=== PATIENT | male | born 2000 | race African-American/Black ===

== ENCOUNTER 2020-04-03 17:49 | Emergency (ER) | payer OTHER ==
[~2020-04-03] VITALS: Ht 172.7 cm; Wt 97.1 kg
[2020-04-03 18:57] VITALS: BP 140/70
== END 2020-04-03 22:28 | disposition home or self-care (01) ==
LOC: ER 17:49
DX: S93.402A Sprain of unspecified ligament of left ankle, initial encounter (principal); X50.9XXA Other and unspecified overexertion or strenuous movements or postures, initial encounter; Y93.89 Activity, other specified; Y92.89 Other specified places as the place of occurrence of the external cause; Y99.8 Other external cause status
CPT/HCPCS: 73610; 73630

== ENCOUNTER 2024-04-13 22:20 | Emergency (ER) | payer MEDICAID, OTHER ==
[~2024-04-13] VITALS: Ht 172.7 cm; Wt 97.0 kg
[2024-04-13 22:34] VITALS: BP 149/75; PULSE 85; RESP 14; O2SAT 97
[2024-04-14 02:12] LABS: Urine Bacteria None Seen /hpf (None Seen)
[2024-04-14 02:56] LABS: Urine Blood 1+ /uL (Negative); Urine Clarity Turbid (Clear); Urine Color Yellow (Yellow); Urine Mucus FEW (None Seen); Urine Protein, UAD 1+ (Negative); Urine Specific Gravity 1.034 (1.001-1.035); Urine Urobilinogen Normal (Negative); Urine WBC 813 /hpf (0 - 3)
[2024-04-14] MEDS ORDERED: IBUP-1456 PO (03:00)
[2024-04-14] MEDS ORDERED: CIPR500T4 PO (03:00)
[2024-04-14] MEDS: cefTRIAXone SOD 1,000 MG VL IM ONE (03:13)
[2024-04-14] MEDS: KETOROLAC TROMETH 60MG/2ML VIAL IM ONE (03:13)
== END 2024-04-14 03:24 | disposition home or self-care (01) ==
LOC: ER 22:20
DX: N39.0 Urinary tract infection, site not specified (principal); Z98.890 Other specified postprocedural states; Z79.899 Other long term (current) drug therapy
CPT/HCPCS: 81001; 96372; 99284; J0696; J1885